=== PATIENT | male | born 1975 | race Caucasian/White ===

== ENCOUNTER 2022-11-29 05:43 | Outpatient (CLI) | payer BC ==
[~2022-11-29] VITALS: Ht 172.7 cm; Wt 102.1 kg
[2022-11-29] MEDS ORDERED: LISI40TA9 PO (13:11)
[2022-11-29] MEDS ORDERED: HYDR25TA4 PO (13:11)
[2022-11-29] MEDS ORDERED: OMEP40CA6 PO (13:11)
== END 2022-11-29 13:16 | disposition home or self-care (01) ==
LOC: PREOP 05:43
PROVIDERS: ATTEND Otolaryngology Otolaryngology/Facial Plastic Surgery
DX: Z01.818 Encounter for other preprocedural examination (principal)

== ENCOUNTER 2022-12-08 06:40 | Day surgery (SDC) | payer BC ==
[2022-12-08] VITALS (10 sets, daily range): BP systolic 121–140; BP diastolic 78–99
[~2022-12-08] VITALS: Ht 172.7 cm; Wt 102.1 kg
[~2022-12-08 06:40] MED LIST: HYDR25TA4 PO; LISI40TA9 PO; OMEP40CA6 PO
[2022-12-08] MEDS ORDERED: LIDOCAINE 1% w/EPI 1:100,000 20 ML VIAL ONE (06:57)
[2022-12-08] MEDS ORDERED: PHENYLEPHRINE 0.5% NASAL SPR (NEO-SYNEPHRINE) REG ONE ×2 (06:57→07:08)
[2022-12-08] MEDS ORDERED: COCAINE 4% TOPICAL SOLN 2 ML SYR ONE (06:57)
[2022-12-08] MEDS ORDERED: LIDOCAINE 1% w/EPI 1:100,000 20 ML VIAL INJ ONE (07:08)
[2022-12-08] MEDS ORDERED: COCAINE 4% TOPICAL SOLN 2 ML SYR NS ONE (07:09)
[2022-12-08] MEDS ORDERED: SEVOFLURANE (ULTANE) 15 ML INHAL SOLN ONE ×2 (07:15→08:23)
[2022-12-08] MEDS ORDERED: ONDANSETRON INJECTION 4 MG/2 ML (SDV) ONE (07:15)
[2022-12-08] MEDS ORDERED: proPOfol 200 MG/20 ML (DIPRIVAN) VIAL IV ONE (07:15)
[2022-12-08] MEDS ORDERED: dexAMETHasone INJ 10 MG/ML 1 ML VIAL ONE (07:15)
[2022-12-08] MEDS ORDERED: fentaNYL INJECTION 100 MCG/2 ML VIAL ONE (07:15)
[2022-12-08] MEDS ORDERED: MIDAZOLAM INJ 2 MG/2 ML VIAL ONE (07:15)
[2022-12-08] MEDS ORDERED: LACTATED RINGERS 1,000 ML IV PRN (07:15)
[2022-12-08] MEDS ORDERED: ROCURONIUM 50 MG/5 ML (ZEMURON) VIAL IV ONE (07:15)
[2022-12-08] MEDS ORDERED: LIDOCAINE PF 2% 5 ML VIAL ONE (07:15)
[2022-12-08 07:19] LABS: BASOPHILS # (AUTO) 0.1 10^3/uL (0.0-0.1); BASOPHILS % (AUTO) 1 % (0-10); EOSINOPHILS # (AUTO) 0.1 10^3/uL (0.0-0.3); EOSINOPHILS % (AUTO) 2 % (0-10); HEMATOCRIT 47 % (40-54); HEMOGLOBIN 15.7 g/dL (13.3-17.7); LYMPHOCYTES # (AUTO) 2.6 10^3/uL (1.0-4.0); LYMPHOCYTES % (AUTO) 43 % (12-44); MEAN CORPUSCULAR HEMOGLOBIN 29 pg (25-34); MEAN CORPUSCULAR HGB CONC 34 g/dL (32-36); MEAN CORPUSCULAR VOLUME 85 fL (80-99); MEAN PLATELET VOLUME 10.7 fL (9.0-12.2); MONOCYTES # (AUTO) 0.6 10^3/uL (0.0-1.0); MONOCYTES % (AUTO) 10 % (0-12); NEUTROPHILS # (AUTO) 2.7 10^3/uL (1.8-7.8); NEUTROPHILS % (AUTO) 44 % (42-75); PLATELET COUNT 185 10^3/uL (130-400); WHITE BLOOD COUNT 6.1 10^3/uL (4.3-11.0)
[2022-12-08 07:30] LABS: CALCIUM 9.1 MG/DL (8.5-10.1); CREATININE SERUM 1.16 MG/DL (0.60-1.30); POTASSIUM 4.2 MMOL/L (3.6-5.0)
[2022-12-08] MEDS ORDERED: AMPICILLIN/SULBACTAM INJECTION 1.5 GM in NS (IVPB) 100 ML 100 ML IV ONE (07:30)
[2022-12-08] MEDS ORDERED: AMPICILLIN/SULBACTAM 1.5 GM/NS 100 ML IVPB IV ONE ×2 (07:30)
--- NOTE | 2022-12-08 07:41 | Progress Note-Post Operative ---
Post-Operative Progess Note Surgeon (s)/Backrest Assembler (s) Surgeon DAILY FUNG MD Backrest Assembler n/a Pre-Operative Diagnosis Deviated nasal septum, Bialt Hyper of Inf Turbs Post-Operative Diagnosis same Post-Op Procedure Note Date of Procedure: Dec 08, 2022 Name of Procedure Performed: Nasal Septoplasty, Bialt Red of Inf Turbs Description & Findings Description and Findings: n/a Anesthesia Type get Estimated Blood Loss minimal Packing none. Specimen(s) collected/removed nasal septum DAILY FUNG MD Dec 08, 2022 07:41
--- NOTE | 2022-12-08 07:41 | Progress Note-Pre Operative ---
Pre-Operative Progress Note Date of Available H&P: Dec 08, 2022 Date H&P Reviewed: Dec 08, 2022 Time H&P Reviewed: 07:00 History & Physical: H&P Reviewed, Patient Examed, No changes noted Changes from last HP none Pre-Operative Diagnosis: Deviated nasal septum, Bialt Hyper of Inf Turbs DAILY FUNG MD Dec 08, 2022 07:40
[2022-12-08] MEDS ORDERED: PROMETHAZINE INJ 25 MG/ML (PHENERGAN) AMP IVP PRN (07:45)
[2022-12-08] MEDS ORDERED: HYDROcodone/ACETAMINOPHEN 5 MG/325 MG TABLET PO PRN (07:45)
[2022-12-08] MEDS ORDERED: D5 1/2NS + KCL 20 MEQ/L 1000ML 1,000 ML IV SCH (07:45)
[2022-12-08] MEDS ORDERED: GLYCOPYRROLATE INJ 0.2 MG/ML 2 ML VIAL ONE (07:53)
[2022-12-08] MEDS ORDERED: NEOSTIGMINE 1 MG/1ML 10 ML VIAL ONE (07:53)
[2022-12-08] MEDS ORDERED: HYDROmorphone INJECTION 2 MG/ML VIAL IV ONE (08:45)
[2022-12-08] MEDS ORDERED: morphine INJ 10 MG/ML 1ML (SYR OR VIAL) IVP ONE (08:45)
[2022-12-08] MEDS ORDERED: ONDANSETRON INJECTION 4 MG/2 ML (SDV) IVP PRN (08:45)
--- NOTE | 2022-12-08 10:37 | Anesthesia-General Post-Op ---
General Patient Condition Mental Status/LOC: Same as Preop Cardiovascular: Satisfactory Nausea/Vomiting: Absent Respiratory: Satisfactory Pain: Controlled Complications: Absent Post Op Complications Complications None Follow Up Care/Instructions Patient Instructions None needed. Anesthesia/Patient Condition Patient Condition Patient is doing well in SDC with no complaints, stable vital signs, no apparent adverse anesthesia problems. No complications reported per nursing. AUGUSTIN MCCOY DO Dec 08, 2022 10:37
[2022-12-08] MEDS ORDERED: AMOX-355 PO (10:42)
[2022-12-08] MEDS ORDERED: ACHD5005 PO (10:42)
== END 2022-12-08 11:20 | disposition home or self-care (01) ==
LOC: SDC 06:40
PROVIDERS: ATTEND Otolaryngology Otolaryngology/Facial Plastic Surgery
DX: J34.2 Deviated nasal septum (principal); J34.3 Hypertrophy of nasal turbinates; G47.33 Obstructive sleep apnea (adult) (pediatric); J34.89 Other specified disorders of nose and nasal sinuses; Z87.891 Personal history of nicotine dependence; Z99.81 Dependence on supplemental oxygen
CPT/HCPCS: 36415; 80048; 85025; 87081; 93005